=== PATIENT | male | born 1955 | race Caucasian/White ===

== ENCOUNTER → 2016-12-09 | Day surgery (SDC) | payer OTHER ==
[~2016-12-09] MED LIST: ALPHA LIPOIC A100 MG PO; ALPHA LIPOIC AC50 M1 PO; AMLODIPINE BESY10 MG PO; ASPIRIN EC81 M1 PO; ASPIRIN81 MG PO; ATORVASTATIN CA40 MG PO; CARDURA PO; CARDURA2 MG PO; CATAPRES0.1 M1 PO; CATAPRES0.1 MG PO; CINNAMON PO; CLOPIDOGREL BIS75 MG PO; CLOPIDOGREL75 MG PO; FLOMAX0.4 M1 PO; FOLIC ACID1 MG PO; GLIPIZIDE10 MG PO; GLUCOPHAGE500 M1 PO; HYDRALAZINE HCL50 MG PO; HYDROCODON-ACE1 EAC9 PO; INDAPAMIDE1.25 MG PO; IRON325 ( 652 PO; JANUVIA PO; KEFLEX500 MG PO; LEVEMIR FL100 UNIT/1 SUBQ; LEVEMIR SUBQ; LIPITOR40 MG PO; LISINOPRIL20 MG PO; LOZOL PO; METFORMIN HCL500 M1 PO; METOPROLOL SUCC50 MG PO; MILK THISTLE175 MG PO; MOVE FREE JOIN1 EACH PO; MOVE FREE ULTR1 EACH PO; NITROGLYCERIN0.4 MG SL; NITROSTAT0.4 MG SL; NORCO 10-325 TA1 TAB PO; NORVASC10 MG PO; OMEPRAZOLE20 M2 PO; TOPROL XL50 MG PO; VITAMIN B-12250 MCG PO; VITAMIN C250 M1 PO; VITAMIN C500 M1 PO; ZESTRIL40 MG PO; ZOLOFT50 MG PO
--- NOTE | ~2016-12-09 | OR ---
Unit #: [id number] #: [id number] Patient: CHEPE MADSEN [id number] [address] [place], [place] [address] [id number] O MR#: [id number] NAME: CHEPE MADSEN ROOM: Date of Procedure: 12/09/2016 Admission Date: 12/09/2016 Surgeon: Kam Jenkins III, M.D. : 1955 Attending Physician: Kam Jenkins III, M.D. Referring Physician: Kam Jenkins III, M.D. Primary Care Physician: Mi Harmon M.D. OPERATIVE REPORT PREOPERATIVE DIAGNOSIS History of colon cancer, diarrhea and weight loss. POSTOPERATIVE DIAGNOSIS Normal colonoscopy. PROCEDURE PERFORMED Colonoscopy to cecum. ANESTHESIA 5 mg of Versed and 50 mg of Demerol. SPECIMENS None. COMPLICATIONS None apparent. INDICATIONS FOR PROCEDURE This is a 61-year-old gentleman, who has a personal history of colon cancer. He has undergone a colon resection for that. He has had some weight loss and diarrhea and is here today for colonoscopy. DESCRIPTION OF PROCEDURE After consent was obtained, the patient was brought to the endoscopy suite and placed in the left lateral decubitus position. We titrated the above sedation and I performed a rectal exam and did not feel any masses. The scope was placed within the rectal vault. Air was insufflated and navigated the scope all the way to the cecum without any difficulty. He had normal mucosa. No evidence any polyps or masses and no diverticular disease was seen. The anastomosis was present at about 15 cm. It was widely patent. The scope was retroflexed within the rectum. No other masses were seen. The scope was then carefully withdrawn. The patient tolerated the procedure without any problems and returned to the recovery room in stable condition. Dictated by... Kam Jenkins III, M.D. VCL/modl Unit #: [id number] #: [id number] Patient: CHEPE MADSEN TD: 12/09/2016 23:28 JOB #: [id number] OPERATIVE REPORT X Kam Jenkins III, MD PROCEDURE OPERATIVE NOTE
== END | disposition home or self-care (01) ==
LOC: COPS 05:40
DX: R19.7 Diarrhea, unspecified (principal); R63.4 Abnormal weight loss; I10 Essential (primary) hypertension; E11.40 Type 2 diabetes mellitus with diabetic neuropathy, unspecified; E11.65 Type 2 diabetes mellitus with hyperglycemia; N40.1 Benign prostatic hyperplasia with lower urinary tract symptoms; R35.1 Nocturia; Z85.038 Personal history of other malignant neoplasm of large intestine; Z87.891 Personal history of nicotine dependence; Z88.6 Allergy status to analgesic agent; Z88.8 Allergy status to other drugs, medicaments and biological substances; Z79.2 Long term (current) use of antibiotics; Z79.82 Long term (current) use of aspirin; Z79.891 Long term (current) use of opiate analgesic; Z79.899 Other long term (current) drug therapy; Z90.49 Acquired absence of other specified parts of digestive tract; Z95.1 Presence of aortocoronary bypass graft; Z98.890 Other specified postprocedural states
CPT/HCPCS: 82947; J2175; J2250

== ENCOUNTER → 2016-12-15 | Outpatient (CLI) | payer OTHER ==
--- NOTE | ~2016-12-15 | CT55 ---
[facility] A Service of [facility] & [facility] RADIOLOGY TEXT RESULTS PATIENT: CHEPE MADSEN LOCATION: [facility] : 59 UNIT #: [id number] AGE: [address]: Arnel Pimentel MD SEX: M ORDER DR: [id number] [id number] [facility]. [place], [place] [address] [id number] O MR#: [id number] [facility] #: [id number] NAME: CHEPE MADSEN : 1955 SEX: M STUDY DATE/TIME: 12/15/2016 15:40 UNIT: [facility] ROOM: STUDY DESCRIPTION: CT Chest W Con Attending Physician: Arnel Pimentel M.D. Referring Physician: Arnel Pimentel M.D. Ordering Physician: Arnel Pimentel M.D. Primary Care Physician: Mi Harmon M.D. MEDICAL IMAGING REPORT This report is preliminary unless electronic signature is present EXAM CT of the chest with contrast INDICATION Colon cancer. Malignant neoplasm of the sigmoid colon. Restaging. Observation for metastatic disease. TECHNIQUE CT of the thorax utilizing 100 mL Isovue-370 IV contrast. Coronal and sagittal reconstructions were obtained. This CT examination was performed with one or more of the following radiation dose reduction techniques: automatic exposure control, adjustment of mA and/or kV according to patient size, and iterative reconstruction. COMPARISON Concurrent CT abdomen and pelvis dated 12/15/[address] abdomen and pelvis dated 08/05/2016. PET/CT dated 03/29/2016. FINDINGS There is a fairly linear area of presumed scarring in the posterior aspect of the left lower lobe. This does have a slightly nodular component, therefore it should be followed. This area measures up to 0.8 cm. Otherwise, there are no new pulmonary opacities. Background emphysema. Central airways are patent. No pathologically enlarged mediastinal or hilar lymph nodes. 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 There are occasional coronary artery calcifications. Please refer to a separately dictated report for details on the abdomen. No acute osseous abnormalities. [facility] A Service of [facility] & [facility] RADIOLOGY TEXT RESULTS PATIENT: CHEPE MADSEN LOCATION: [facility] : 59 UNIT #: [id number] AGE: [address]: Arnel Pimentel MD SEX: M ORDER DR: IMPRESSION 1. Development of a linear area of scarring or atelectasis in the left lower lobe. There is a slightly nodular component to this area, therefore, this should be followed. A benign etiology is favored. 2. Emphysema. Dictated by... Alvin Barrera M.D. THIS IS AN ELECTRONICALLY VERIFIED REPORT Alvin Barrera M.D. at 12/16/2016 8:39 AM CHETAN/belen TD: 12/16/2016 08:16 JOB #: [id number] MEDICAL IMAGING REPORT COPY
--- NOTE | ~2016-12-15 | CT2 ---
[facility] A Service of [facility] & [facility] RADIOLOGY TEXT RESULTS PATIENT: CHEPE MADSEN [facility] : 57 UNIT #: [id number] AGE: [address]: Arnel Pimentel MD SEX: M ORDER DR: [id number] [facility] [address] [facility] [place], [place] [address] [id number] O MR#: [id number] Acc #: [id number] NAME: CHEPE MADSEN : 1955 SEX: M STUDY DATE/TIME: 12/15/2016 14:44 UNIT: [facility] ROOM: STUDY DESCRIPTION: CT Abd and Pelv W Cont Attending Physician: Arnel Pimentel M.D. Referring Physician: Arnel Pimentel M.D. Ordering Physician: Arnel Pimentel M.D. Primary Care Physician: Mi Harmon M.D. MEDICAL IMAGING REPORT This report is preliminary unless electronic signature is present INDICATION Colon cancer. Malignant neoplasm of the sigmoid colon. Restaging. TECHNIQUE CT abdomen and pelvis with p.o. and IV contrast (100 mL Isovue-370 IV contrast). Coronal and sagittal reconstructions were obtained. This CT exam was performed with one or more of the following radiation dose reduction techniques: automatic exposure control, adjustment of mA and/or kV according to patient size, and iterative reconstruction. COMPARISON Concurrent chest CT dated 11/17/[address] abdomen and pelvis 08/05/2016. FINDINGS No focal lesions are identified in the liver. There are non mass-like low attenuation areas in the periphery of the right hepatic lobe near the capsule. There is a non mass-like area is most consistent with areas of geographic hepatic steatosis. This is a new finding and can be followed. Gallbladder is surgically absent. The pancreas, spleen, and adrenal glands are unchanged. There is a nodule in the left adrenal gland which is unchanged. Kidneys enhance normally. The bowel is not dilated. There is moderate atherosclerotic disease of the abdominal aorta. No aneurysm. The appendix is normal. There is development of some wall thickening of the rectum with some inflammatory stranding in the mesial rectal fat. There is also some soft tissue thickening in the presacral space. This is a new finding from the prior study. The patient has presumably undergone radiation therapy of the pelvis. No discrete soft tissue mass is identified. Continued followup is warranted. There is diffuse wall thickening of the urinary bladder. This may also be STS. [facility] A Service of [facility] RADIOLOGY TEXT RESULTS PATIENT: CHEPE MADSEN LOCATION: [facility] : 59 UNIT #: [id number] AGE: [address]: Arnel Pimentel MD SEX: M ORDER DR: related to radiation therapy, however correlation with urinalysis is recommended. No enlarged pelvic or inguinal lymph nodes. No acute osseous abnormalities. IMPRESSION 1. Induration of the mesorectal fat and the presacral fat. This is presumably due to interval radiation therapy of the pelvis. There is no discrete mass or nodularity identified, however, this area should be closely followed. There is postsurgical change of rectal resection with subsequently reanastomosis. 2. Diffuse wall thickening of the urinary bladder is also likely due to radiation therapy, however correlation with urinalysis is recommended to differentiate from a cystitis. 3. Non mass-like areas of hypoattenuation in the periphery of the right hepatic lobe. This probably represents geographic hepatic steatosis, however should be followed. If definitive characterization is warranted, consider an MRI of the abdomen with and without contrast. 4. Low-attenuation left adrenal nodule is unchanged and likely an adrenal adenoma. Dictated by... Alvin Barrera M.D. THIS IS AN ELECTRONICALLY VERIFIED REPORT Alvin Barrera M.D. at 12/16/2016 8:39 AM Aba TD: 12/16/2016 08:06 JOB #: [id number] MEDICAL IMAGING REPORT COPY
[2016-12-15 16:36] LABS: POC - CREATININE 0.66 mg/dL (0.64-1.27); POC - GFR >60.0 mL/min (>60)
== END | disposition home or self-care (01) ==
LOC: CCAT 14:33
PROVIDERS: Internal Medicine Hematology & Oncology
DX: C18.7 Malignant neoplasm of sigmoid colon (principal); R30.0 Dysuria; R53.83 Other fatigue; E11.9 Type 2 diabetes mellitus without complications; J43.9 Emphysema, unspecified; N32.89 Other specified disorders of bladder; E27.8 Other specified disorders of adrenal gland
CPT/HCPCS: 71260; 74177; 82565; Q9967